=== PATIENT | female | born 1995 | race African-American/Black ===

== ENCOUNTER 2018-11-22 17:51 | Emergency (ER) | payer OTHER ==
[~2018-11-22] VITALS: Ht 188 cm; Wt 66.0 kg
[2018-11-22] MEDS ORDERED: ONDANSETRON HCL 4MG/2ML INJ IV STA (19:00)
[2018-11-22] MEDS ORDERED: MORPHINE SULFATE 4 MG/ML CPJ (NOT FOR IM USE) IV STA (19:00)
[2018-11-22] MEDS ORDERED: SODIUM CHLORIDE 0.9% 1,000 ML IV ONE (19:00)
[2018-11-22 19:44] LABS: BASOPHILS % 0.8 % (0.0-2.0); EOSINOPHILS % 0.7 % (0.0-5.0); HEMATOCRIT. 37.7 % (36.0-48.0); HEMOGLOBIN. 12.6 g/dL (12.0-16.0); LYMPHOCYTES % 21.3 % (20.0-50.0); MEAN CORPUSCULAR HEMOGLOBIN 29.7 pg (28.0-32.0); MEAN CORPUSCULAR VOLUME 88.6 fL (81.0-99.0); MEAN PLATELET VOLUME 8.9 fl (7.4-10.4); MONOCYTES % 7.3 % (2.0-8.0); NEUTROPHILS % 69.9 % (40.0-76.0); PLATELET 180 x1000/uL (130-400); RED BLOOD CELL COUNT 4.26 mill/uL (4.2-5.4); RED CELL DISTRIBUTION WIDTH 13.6 % (11.6-14.6)
[2018-11-22 19:49] LABS: CHLORIDE 105 mEq/L (98-107); PROTHROMBIN TIME 10.7 sec (9.6-11.0)
[2018-11-22] MEDS ORDERED: LIDOCAINE HCL/EPINEPHRINE 1%-EPI 1:100,000 20 ML VIAL INFIL ONE (21:30)
[2018-11-22 22:45] VITALS: BP 112/67
[2018-11-22] MEDS ORDERED: SULFAMETHOXAZOLE/TRIMETHOPRIM 800/160MG TABLET PO ONE (23:00)
== END 2018-11-23 00:06 | disposition home or self-care (01) ==
LOC: ER 17:51
DX: N61.1 Abscess of the breast and nipple (principal)
CPT/HCPCS: 10060; 36415; 76641; 80053; 85025; 85610; 96374; 96375; 99284; J2270; J2405; J3490; J7030

== ENCOUNTER 2021-08-13 23:35 | Emergency (ER) | payer MEDICAID, OTHER ==
[~2021-08-13] VITALS: Ht 188 cm; Wt 67.3 kg
[2021-08-14] MEDS ORDERED: KETOROLAC 30MG/ML VIAL IV STA (01:10)
[2021-08-14] MEDS ORDERED: SODIUM CHLORIDE 0.9% 1,000 ML IV ONE (01:15)
[2021-08-14 01:42] LABS: CLARITY URINE CLOUDY (CLEAR); COLOR URINE YELLOW (YELLOW); KETONES URINE NEGATIVE (NEGATIVE); LEUKOCYTE ESTERASE URINE 3+ (NEGATIVE); NITRITE URINE NEGATIVE (NEGATIVE); OCCULT BLOOD URINE 1+ (NEGATIVE); PROTEIN URINE NEGATIVE (NEGATIVE); SPECIFIC GRAVITY URINE 1.014 (1.005-1.030)
[2021-08-14] MEDS ORDERED: CEFTRIAXONE 1 G PREMIX 50 ML IV NR (02:00)
[2021-08-14 02:04] LABS: RED BLOOD CELL COUNT 4.81 mill/uL (4.2-5.4)
[2021-08-14] MEDS ORDERED: CEPH500T MT (02:06)
[2021-08-14] MEDS ORDERED: IBUP-2029 MT (02:06)
[2021-08-14 02:13] LABS: CHLORIDE 101 mEq/L (98-107)
[2021-08-14 02:22] LABS: BASOPHILS % 0.6 % (0.0-2.0); EOSINOPHILS % 1.1 % (0.0-5.0); HEMATOCRIT. 43.3 % (36.0-48.0); HEMOGLOBIN. 14.7 g/dL (12.0-16.0); LYMPHOCYTES % 21.2 % (20.0-50.0); MEAN CORPUSCULAR HEMOGLOBIN 30.5 pg (28.0-32.0); MEAN CORPUSCULAR VOLUME 89.9 fL (81.0-99.0); MEAN PLATELET VOLUME 8.6 fl (7.4-10.4); MONOCYTES % 10.3 % (2.0-8.0); NEUTROPHILS % 66.8 % (40.0-76.0); PLATELET 241 x1000/uL (130-400); RED CELL DISTRIBUTION WIDTH 13.3 % (11.6-14.6)
[2021-08-14 02:25] LABS: HCG SCREEN NEGATIVE
[2021-08-14 03:14] VITALS: BP 128/60
== END 2021-08-14 03:14 | disposition home or self-care (01) ==
LOC: ER 23:35
DX: N12 Tubulo-interstitial nephritis, not specified as acute or chronic (principal); R00.0 Tachycardia, unspecified
CPT/HCPCS: 80053; 81001; 81025; 83690; 84703; 85025; 87077; 87086; 87186; 96361; 96365; 96375; 99284; J0696; J1885; J7030